=== PATIENT | male | born 1985 | race Caucasian/White ===

== ENCOUNTER 2017-07-17 20:46 | Emergency (ER) | payer SELFPAY ==
[~2017-07-17 20:46] MED LIST: BACT PO; BACT2OIN TOP; CLIN1CAP5 PO
[2017-07-17 20:48] VITALS: BP 149/97; PULSE 81; RESP 16; TEMP 98.1; O2SAT 100
[2017-07-17] MEDS ORDERED: DOXY1CAP74 PO (21:56)
[2017-07-17] MEDS ORDERED: DOXY50 PO ×2 (21:56→21:57)
[2017-07-17 23:17] LABS: AUTOMATED NEUTROPHIL # 3.6 TH/MM3 (1.8-7.7); BASOPHIL # 0.1 TH/MM3 (0-0.2); BASOPHIL % 0.9 % (0.0-2.0); EOSINOPHIL % 0.8 % (0.0-4.0); HEMO FLAGS DIFF FINAL; LYMPH % 30.1 % (9.0-44.0); LYMPHOCYTE # 1.8 TH/MM3 (1.0-4.8); MEAN CORPUSCULAR HEMOGLOBIN 29.7 PG (27.0-34.0); MEAN CORPUSCULAR HGB CONC 34.1 % (32.0-36.0); MONO % 7.2 % (0.0-8.0); PLATELET COUNT 192 TH/MM3 (150-450); RED BLOOD COUNT 5.06 MIL/MM3 (4.50-5.90); RED CELL DISTRIBUTION WIDTH 13.1 % (11.6-17.2)
[2017-07-17 23:25] LABS: BLOOD, URINE NEG (NEG); GLUCOSE,URINE NEG (NEG); KETONE, URINE NEG (NEG); NITRITE,URINE NEG (NEG); PH, URINE 7.5 (5.0-8.5); URINE COLOR YELLOW (YELLW/STRAW)
[2017-07-17 23:30] LABS: COMMENT (UR) CULT NOT INDICATED; CULTURE IF INDICATED CULT NOT INDICATED
[2017-07-17 23:40] LABS: ALT (GPT) 75 U/L (12-78)
[2017-07-17 23:41] LABS: ALKALINE PHOSPHATASE 72 U/L (45-117); TOTAL BILIRUBIN ADULT 0.4 MG/DL (0.2-1.0)
[2017-07-17 23:46] LABS: ANION GAP 8 MEQ/L (5-15); AST (GOT) 33 U/L (15-37); BICARBONATE 28.1 MEQ/L (21.0-32.0); BLOOD UREA NITROGEN 18 MG/DL (7-18); CHLORIDE 101 MEQ/L (98-107); GLOMERULAR FILTRATION RATE 87 ML/MIN (>89); POTASSIUM 4.1 MEQ/L (3.5-5.1); SODIUM (NA) 137 MEQ/L (136-145)
[2017-07-18] MEDS ORDERED: IOHEXOL 350 MG/ML 10 ML VIAL (for RAD DIAG) IVCONTRAST ONE (00:09)
--- NOTE | 2017-07-18 00:33 | RADRPT ---
EXAM DATE/TIME: 07/18/2017 00:03 [place] COMPARISON: No previous studies available for comparison. INDICATIONS : Bilateral flank and groin pain. Swollen lymph nodes for 3 months IV CONTRAST: 70 cc Omnipaque 350 (iohexol) IV ORAL CONTRAST: No oral contrast ingested. RADIATION DOSE: 14.78 CTDIvol (mGy) MEDICAL HISTORY : None SURGICAL HISTORY : None. ENCOUNTER: Initial ACUITY: 3 months PAIN SCALE: 6/10 LOCATION: Bilateral pelvis TECHNIQUE: Volumetric scanning of the pelvis was performed. Using automated exposure control and adjustment of t he mA and/or kV according to patient size, radiation dose was kept as low as reasonably achievable to obtain optimal diagnostic quality images. DICOM format image data is available electronically for review and comparison. FINDINGS: Examination of the pelvis demonstrates no evidence of free fluid or pelvic mass. No abnormally enlarg ed inguinal or retroperitoneal lymph nodes are present. The bladder is unremarkable. There is possibl e anomalous artery at the level of aortic bifurcation. CT angiography is recommended for further eval uation if clinically indicated. CONCLUSION: 1. No evidence of acute pelvic process. No masses are identified. 2. Possible anomalous artery at the aortic bifurcation. CT angiography is recommended for further josephine luation if clinically indicated. Srinivas Montelongo MD on July 18, 2017 at 0:20 Board Certified Radiologist. This report was verified electronically.
[2017-07-18] MEDS ORDERED: MOBI15TA PO (00:58)
[2017-07-18] MEDS ORDERED: DOXY100C PO (00:58)
[2017-07-18] MEDS ORDERED: TRAM50 PO (00:58)
--- NOTE | 2017-07-18 00:58 | PD ---
HPI Chief Complaint: Flank/Kidney Pain Time Seen by Provider: 22:07 Travel History International Travel<30 days: No Contact w/Intl Traveler<30days: No Traveled to known affect area: No History of Present Illness HPI 31-year-old male complains of low abdominal pain point pain swollen lymph glands and fever. Patient states that the symptoms have been intermittent for the past 3 months. Patient denies any headache. Patient denies chest pain or shortness of breath. Patient states the pain is cramping pain pressure pain localized to lower abdomen and groin area. Patient denies any pain radiation. Patient has been seen by personal physician recently. Patient denies any dysuria or frequency. Patient states that he had low-grade fever in the past. Patient denies any injury. Patient states that he lost about 12 pounds for past 3 months. Patient denies any history of lymphoma or leukemia. PFSH Past Medical History Medical History: Denies Significant Hx Tetanus Vaccination: Unknown Influenza Vaccination: No Past Surgical History Surgical History: No Previous Surgery Social History Alcohol Use: No Tobacco Use: No Substance Use: No Allergies-Medications (Allergen,Severity, Reaction): Coded Allergies: No Known Allergies (Unverified Adverse Reaction, Unknown, 07/17/17) Reported Meds & Prescriptions Reported Meds & Active Scripts Active Reported Doxycycline Hyclate 50 Mg Cap 50 Mg PO TID Review of Systems General / Constitutional: Positive: Fever Eyes: No: Visual changes HENT: No: Headaches Cardiovascular: No: Chest Pain or Discomfort Respiratory: No: Shortness of Breath Gastrointestinal: Positive: Abdominal Pain Genitourinary: No: Dysuria Musculoskeletal: No: Pain Skin: No Rash Neurologic: No: Weakness Psychiatric: No: Depression Endocrine: No: Polydipsia Hematologic/Lymphatic: No: Easy Bruising Physical Exam Narrative GENERAL: Well-nourished, well-developed patient. SKIN: Focused skin assessment warm/dry. HEAD: Normocephalic. EYES: No scleral icterus. No injection or drainage. NECK: Supple, trachea midline. No JVD or lymphadenopathy. CARDIOVASCULAR: Regular rate and rhythm without murmurs, gallops, or rubs. RESPIRATORY: Breath sounds equal bilaterally. No accessory muscle use. GASTROINTESTINAL: Abdomen soft, non-tender, nondistended. MUSCULOSKELETAL: No cyanosis, or edema. BACK: Nontender without obvious deformity. No CVA tenderness. exam: Patient had no tenderness on palpation of the testicle. Mild tenderness on palpation stromatic cord. Or mass noted. No redness no swelling noted. No penile lesion or discharge noted. Mild tenderness on palpation of the pubic area. Data Data Last Documented VS Vital Signs Date Time Temp Pulse Resp B/P (MAP) Pulse Ox O2 Delivery O2 Flow Rate FiO2 07/17/17 20:48 98.1 81 16 149/97 (114) 100 Room Air Orders Orders Complete Blood Count With Diff (07/17/17 22:24) Comprehensive Metabolic Panel (07/17/17 22:24) Urinalysis - C+S If Indicated (07/17/17 22:24) Iv Access Insert/Monitor (07/17/17 22:24) Ct Pelvis W Iv Contrast(Rout) (07/17/17 ) Iohexol 350 Inj (Omnipaque 350 Inj) (07/18/17 00:09) Labs Laboratory Tests Test 07/17/17 23:00 White Blood Count 6.0 TH/MM3 Red Blood Count 5.06 MIL/MM3 Hemoglobin 15.0 GM/DL Hematocrit 44.0 % Mean Corpuscular Volume 87.0 FL Mean Corpuscular Hemoglobin 29.7 PG Mean Corpuscular Hemoglobin Concent 34.1 % Red Cell Distribution Width 13.1 % Platelet Count 192 TH/MM3 Mean Platelet Volume 7.8 FL Neutrophils (%) (Auto) 61.0 % Lymphocytes (%) (Auto) 30.1 % Monocytes (%) (Auto) 7.2 % Eosinophils (%) (Auto) 0.8 % Basophils (%) (Auto) 0.9 % Neutrophils # (Auto) 3.6 TH/MM3 Lymphocytes # (Auto) 1.8 TH/MM3 Monocytes # (Auto) 0.4 TH/MM3 Eosinophils # (Auto) 0.0 TH/MM3 Basophils # (Auto) 0.1 TH/MM3 CBC Comment DIFF FINAL Differential Comment Urine Color YELLOW Urine Turbidity CLEAR Urine pH 7.5 Urine Specific [place] 1.012 Urine Protein NEG mg/dL Urine Glucose (UA) NEG mg/dL Urine Ketones NEG mg/dL Urine Occult Blood NEG Urine Nitrite NEG Urine Bilirubin NEG Urine Urobilinogen LESS THAN 2.0 MG/DL Urine Leukocyte Esterase NEG Urine RBC 1 /hpf Urine WBC 2 /hpf Microscopic Urinalysis Comment CULT NOT INDICATED Blood Urea Nitrogen 18 MG/DL Creatinine 1.01 MG/DL Random Glucose 91 MG/DL Total Protein 7.1 GM/DL Albumin 4.0 GM/DL Calcium Level 8.8 MG/DL Alkaline Phosphatase 72 U/L Aspartate Amino Transf (AST/SGOT) 33 U/L Alanine Aminotransferase (ALT/SGPT) 75 U/L Total Bilirubin 0.4 MG/DL Sodium Level 137 MEQ/L Potassium Level 4.1 MEQ/L Chloride Level 101 MEQ/L Carbon Dioxide Level 28.1 MEQ/L Anion Gap 8 MEQ/L Estimat Glomerular Filtration Rate 87 ML/MIN MDM Medical Decision Making Medical Screen Exam Complete: Yes Emergency Medical Condition: Yes Interpretation(s) Last Impressions Pelvis CT 07/17/17 0000 Signed Impressions: Service Date/Time: Tuesday, July 18, 2017 00:03 - CONCLUSION: 1. No evidence of acute pelvic process. No masses are identified. 2. Possible anomalous artery at the aortic bifurcation. CT angiography is recommended for further evaluation if clinically indicated. Srinivas Montelongo MD 12:53 AM. CBC within normal limit. CMP within normal limit. UA is negative. Differential Diagnosis Differential diagnosis including urethritis, UTI, prostatitis, epididymitis, orchitis, colitis. Narrative Course 31-year-old male with intermittent fever, lower abdominal pelvic pain, groin pain, lymphadenopathy. Diagnosis Primary Impression: Prostatitis Qualified Codes: N41.1 - Chronic prostatitis Patient Instructions: General Instructions Additional Instructions: Doxycycline as directed. Follow-up with personal physician and urologist. Return if worse. Med/Other Pt SpecificInfo: Prescription(s) given Scripts Tramadol (Ultram) 50 Mg Tab 50 MG PO Q6H Y for PAIN, #12 TAB 0 Refills Prov: Rickie Sanchez MD 07/18/17 Meloxicam (Mobic) 15 Mg Tab 15 MG PO DAILY for Pain, #21 TAB 0 Refills Prov: Rickie Sanchez MD 07/18/17 Doxycycline Hyclate (Doxycycline Hyclate) 100 Mg Cap 100 MG PO BID for Infection, #42 CAP 0 Refills Prov: Rickie Sanchez MD 07/18/17 Disposition: 01 DISCHARGE HOME Condition: Stable Rickie Sanchez MD Jul 18, 2017 00:58
== END 2017-07-18 01:25 | disposition home or self-care (01) ==
LOC: NEPE 20:46
DX: N41.9 Inflammatory disease of prostate, unspecified (principal)
CPT/HCPCS: 72193; 80053; 81001; 85025; 99285; Q9967